=== PATIENT | female | born 2000 | race Caucasian/White ===

== ENCOUNTER 2024-09-11 17:33 | Emergency (ER) | payer BC, MEDICAID, SELFPAY ==
[2024-09-11 17:34] VITALS: BMI 33.2
[2024-09-11 17:53] VITALS: BP 130/86; PULSE 118; RESP 16; TEMP 37.4; O2SAT 98; BMI 33.2
--- NOTE | 2024-09-11 18:16 | PD.EDRME ---
Rapid Medical Screening Exam RME Arrival date/time: 09/11/24 17:33 23-year-old female past medical history of presents emergency department complaining of bilateral lower extremity and left upper arm red lesions that are warm to touch since Thursday. Chief Complaint: Skin/Abscess/Foreign Body Time Seen by Provider: 09/11/24 18:09 Vital signs: Vital Signs Temperature 99.3 F 09/11/24 17:53 Pulse Rate 118 H 09/11/24 17:53 Respiratory Rate 16 09/11/24 17:53 Blood Pressure 130/86 H 09/11/24 17:53 Pulse Oximetry (%) 98 09/11/24 17:53 Oxygen Delivery Method Room Air 09/11/24 17:53 Vital signs reviewed by provider: Yes
[2024-09-11 18:41] LABS: Basophils % (Auto) 0 % (0-2.5); Eosinophils # (Auto) 0.3 Thou/mm3 (0.0-0.5); Eosinophils % (Auto) 2 % (0-10); Hematocrit 40.8 % (36.0-46.0); Hemoglobin 13.9 g/dL (12.0-16.0); Immature Granulocytes % (Auto) 0 % (0-0); Immature Granulocytes Auto 0.03 Thou/mm3 (0.00-0.00); Lymphocytes # (Auto) 1.6 Thou/mm3 (1.0-4.8); Lymphocytes % (Auto) 14 % (10-50); Mean Corpuscular HGB Conc 34.1 g/dl (31.0-37.0); Mean Corpuscular Hemoglobin 27.2 pg (25.0-35.0); Mean Corpuscular Volume 80 fL (80-100); Monocytes # (Auto) 0.5 Thou/mm3 (0.0-0.8); Monocytes % (Auto) 4 % (0-12); Neutrophils % (Auto) 79 % (37-80); Nucleated Red Blood Cell % 0 /100 WBC (0); Platelet Count 425 Thou/mm3 (140-440); RDW Standard Deviation 34.5 fL (36.4-46.3); Red Blood Count 5.11 Miln/mm3 (4.00-5.20); White Blood Count 11.4 Thou/mm3 (3.6-11.0)
[2024-09-11 18:58] LABS: Alanine Aminotransferase 18 U/L (10-49); Albumin, Serum 5.1 gm/dL (3.5-5.0); Albumin/Globulin Ratio 1.8 (1.2-2.2); Alkaline Phosphatase 167 U/L (46-116); Anion Gap 9 (7-16); Aspartate Amino Transferase 15 U/L (0-34); BUN/Creatinine Ratio 12 Ratio (12-20); Bilirubin,Total 0.9 mg/dL (0.3-1.2); Blood Urea Nitrogen 7 mg/dL (9-23); Calcium 9.7 mg/dL (8.3-10.6); Calcium (Corrected) 9.7 mg/dL (8.5-10.1); Carbon Dioxide 23.5 mMol/L (20.0-31.0); Chloride 105 mMol/L (98-107); Creatinine (Component) 0.6 mg/dL (0.6-1.3); Estimated Creatinine Clearance 132.7 mL/min (>60); Globulin 2.8 gm/dL (2.3-3.5); Glucose 92 mg/dL (74-106); Osmolality,Calculated 271 (275-295); Potassium 3.9 mMol/L (3.4-5.1); Sodium 137 mMol/L (136-145); Total Protein 7.9 gm/dL (5.7-8.2); eGFR > 60 See Note
[2024-09-11 19:19] LABS: HCG,Qualitative Serum Negative
[2024-09-11 19:28] LABS: Collection Type, Urine Clean Catch
[2024-09-11 19:38] LABS: Bacteria,Urine Rare; Bilirubin,Urine Negative (Negative); Blood,Urine 1+ (Negative); Clarity,Urine Clear (Clear/Hazy); Color,Urine Lt-Yellow (Lt Yel-Yel); Culture Indicated,Urine Not Indicated; Glucose, Urine Negative (Negative); Ketones,Urine Negative (Negative); Leukocyte Esterase,Urine Positive (Negative); Nitrite,Urine Negative (Negative); PH,Urine 7.5 (5.0-7.0); Protein,Urine Negative (Neg - Trace); RBC,Urine 3 /hpf (0-3); Specific Gravity,Urine 1.018 (1.001-1.035); Squamous Epithelial Cell,Urine 3 /hpf (0-5); Urobilinogen,Urine Negative mg/dL (0.0-1.0); WBC,Urine 1 /hpf (0-5)
[2024-09-11] MEDS: ACETAMINOPHEN 500 MG TABLET 1000 MG PO (19:44)
--- NOTE | 2024-09-11 20:00 | EDNOTE_ITS ---
<Statement entered by Alexus Segura MD - 09/12/24 04:28> As co-signing physician, I was present and available for consult prn. I concur with the plan and care as documented by the midlevel provider. ED Skin Abcess FB-RME/HPI General Chief complaint: Skin/Abscess/Foreign Body Stated complaint: rash on bilateral legs, warm, no itching Time Seen by Provider: 09/11/24 18:09 Source: patient Arrival date/time: 09/11/24 17:33 23-year-old female past medical history of presents emergency department complaining of bilateral lower extremity and left upper arm red lesions that are warm to touch since Thursday. Patient denies any recent illness or recent travel. Patient denies any fever, chills, itching, vomiting, cough, or any other associated symptom. Mode of arrival: ambulatory Limitations: no limitations RME / HPI RME / HPI narrative: 09/11/24 17:33 23-year-old female past medical history of presents emergency department complaining of bilateral lower extremity and left upper arm red lesions that are warm to touch since Thursday. Related Data Home Medications ?Medication ?Instructions ?Recorded ?Confirmed furosemide 20 mg tablet 20 mg PO QDAY 11/04/23 11/04/23 ibuprofen 400 mg tablet 800 mg PO Q8HR PRN Pain 11/04/23 11/04/23 ondansetron 4 mg disintegrating 4 mg PO Q6H vomiting 11/04/23 11/04/23 tablet Previous Rx's ?Medication ?Instructions ?Recorded albuterol sulfate 90 mcg/actuation 2 puff inhalation QID PRN 08/21/18 aerosol inhaler (Ventolin HFA) shortness of breath or wheezing #8.5 grams labetalol 200 mg tablet 400 mg (2 x 200 mg) PO TID 30 days 10/24/23 #180 tabs ciprofloxacin HCl 500 mg tablet 500 mg PO Q12H #20 tabs 11/07/23 ciprofloxacin HCl 500 mg tablet 500 mg PO Q12H #30 tabs 11/07/23 metronidazole 500 mg tablet 500 mg PO Q12H #20 tabs 11/07/23 metronidazole 500 mg tablet 500 mg PO Q12H #30 tabs 11/07/23 acetaminophen 500 mg capsule 500 mg PO Q6H PRN pain #30 caps 09/11/24 doxycycline hyclate 100 mg capsule 100 mg PO BID 7 days #14 caps 09/11/24 Allergies Allergy/AdvReac Type Severity Reaction Status Date / Time amoxicillin Allergy Intermediate SWELLING Verified 11/03/23 17:48 erythromycin base Allergy Intermediate SWELLING Verified 11/03/23 17:48 red dye Allergy Intermediate SWELLING Verified 11/03/23 17:48 sulfamethoxazole Allergy Intermediate SWELLING Verified 11/03/23 17:48 trimethoprim Allergy Intermediate SWELLING Verified 11/03/23 17:48 MARGARINE Allergy Intermediate SWELLING Uncoded 11/03/23 17:48 Review of Systems Review of Systems Systems Reviewed: All systems reviewed, normal except as documented Constitutional Constitutional: Reports system reviewed and no additional complaints, except as documented, Denies body ache(s), Denies chills and Denies fever(s) Eyes Eyes: Reports system reviewed and no additional complaints, except as documented and Denies change in vision ENT Ears, Nose, Mouth, and Throat: Reports system reviewed and no additional complaints, except as documented, Denies disequilibrium, Denies dizziness, Denies sore throat and Denies vertigo Cardiovascular Cardiovascular: Reports system reviewed and no additional complaints, except as documented, Denies chest pain and Denies dyspnea Respiratory Respiratory: Reports system reviewed and no additional complaints, except as documented, Denies chest congestion, Denies cough and Denies dyspnea Gastrointestinal Gastrointestinal: Reports system reviewed and no additional complaints, except as documented, Denies abdominal pain, Denies nausea and Denies vomiting Musculoskeletal Musculoskeletal: Reports system reviewed and no additional complaints, except as documented, Denies abnormal gait and Denies arthralgias Integumentary/Breasts Skin/Breast: Reports system reviewed and no additional complaints, except as documented, Denies erythema, Reports rash and Denies wounds Neurologic Neurologic: Reports system reviewed and no additional complaints, except as documented, Denies abnormal gait, Denies disequilibrium, Denies dizziness and Denies vertigo Past Medical History Past Medical History NEUROLOGIC: Negative Neurological Disorders or Seizures CARDIAC: Positive Hypertension (while ); Negative Cardiac Disorders or Congestive Heart Failure RESPIRATORY: Positive Asthma (asthma-last used inhaler 6-8 months ago); Negative Chronic Obstructive Pulmonary Disease (COPD) GASTROINTESTINAL: Negative Gastrointestinal Disorders GENITOURINARY: Negative Genitourinary Disorders or Renal Disease REPRODUCTIVE: Positive Previous Pregnancies MUSCULOSKELETAL: Negative Musculoskeletal Disorders ENDOCRINE: Negative Endocrine Disorders, Diabetes Mellitus Type 1 or Diabetes Mellitus Type 2 HEMATOLOGIC: Negative Blood Disorders, Anemia or Sickle Cell Disease PSYCHO/SOCIAL: Positive Depression and Anxiety OTHER HISTORY: Positive Blood Transfusions; Negative Autoimmune Disease, Falls, Blood Transfusion Reaction, Anesthesia Reactions, MRSA, VRSA, Vancomycin-Resistant Enterococci or Cancer Family History FAMILY HISTORY: Positive Family Respiratory Disorders (GRANMOTHER); Negative Family Psychiatric Problems, Family Cardiac Disorders, Family Gastrointestinal Problems, Family Cancer, Family Surgery or Family Anesthesia Reaction Surgical History SURGICAL: Positive Section (october 22, 2023) Social History SMOKING STATUS: Former smoker ED Exam General Limitations: Present no limitations General appearance: Present alert and in no apparent distress Head Head exam: Present atraumatic Eye Eye exam: Present normal appearance, PERRL and EOMI ENT ENT exam: Present normal exam, normal oropharynx and mucous membranes moist Neck Neck exam: Present normal inspection, full ROM and trachea midline Chest Chest inspection: Present normal inspection and symmetric chest wall rise Respiratory Respiratory exam: Present normal lung sounds bilaterally Cardiovascular Cardiovascular exam: Present regular rate, normal rhythm and normal heart sounds Abdominal Exam Abdominal exam: Present soft and normal bowel sounds Extremities Exam Extremities exam: Present normal inspection and full ROM Back Exam Back exam: Present normal inspection and full ROM Neurological Exam Neurological exam: Present alert, oriented X3 and CN II-XII intact Psychiatric Psychiatric exam: Present normal affect and normal mood Skin Skin exam: Present warm, dry, intact and rash Expanded Skin Exam Type of lesion: Present bite/sting Distribution: Present generalized, LLE, RUE and RLE Body image: 2 1. Generalized small about the size of a quarter red and warm to touch with possible portal of entry from bug bite or sting in the middle. They have the appearance of mosquito bites. 2. Generalized small about the size of a quarter red and warm to touch with possible portal of entry from bug bite or sting in the middle. They have the appearance of mosquito bites. 3. Generalized small about the size of a quarter red and warm to touch with possible portal of entry from bug bite or sting in the middle. They have the appearance of mosquito bites. Course Quality Measures none Orders Category Date Time Status CBC Stat Lab 09/11/24 18:25 Completed CMP [Comprehensive Metabolic Panel] Stat Lab 09/11/24 18:25 Completed HCG,Qualitative Serum Stat Lab 09/11/24 18:25 Completed Urinalysis, C/S if Indicated Stat Lab 09/11/24 18:50 Completed Acetaminophen Tab [Tylenol ES Tab] Med 09/11/24 18:28 Discontinued 1,000 mg PO X1 ONE Vital Signs Vital signs: Vital Signs Temperature 99.3 F 09/11/24 17:53 Pulse Rate 118 H 09/11/24 17:53 Respiratory Rate 16 09/11/24 17:53 Blood Pressure 130/86 H 09/11/24 17:53 Pulse Oximetry (%) 98 09/11/24 17:53 Oxygen Delivery Method Room Air 09/11/24 17:53 98% room air within normal limits Skin / Abscess / Foreign Body MDM Narrative MDM Narrative:: 23-year-old female past medical history of presents emergency department complaining of bilateral lower extremity and left upper arm red lesions that are warm to touch since Thursday. Patient denies any recent illness or recent travel. Patient denies any fever, chills, itching, vomiting, cough, or any other associated symptom. Patient appears nontoxic and is hemodynamically stable. CBC unremarkable for any leukocytosis. CMP and urinalysis were also unremarkable. Patient likely has some infected mosquito or bug bites. Small red lesions approximately a quarter in size generalized to bilateral lower extremities and left upper arm. Will treat with antibiotics due to patient's several allergies to penicillins and sulfas patient will be discharged on doxycycline and instructed to have follow-up in a couple days for reevaluation of wounds. Instructed to return immediately to emergency department for any worsening signs of infection or as needed. Patient data External records reviewed:: [facility] previous records Clinical information provided by:: patient Social determinants that could affect healthcare access:: none Patient has the following chronic illnesses:: None How is presenting disease/condition affected by chronic disease/condition?: no chronic disease Evaluation data The following diagnostics were reviewed and interpreted by me:: lab results Lab and/or radiology exams considered but not ordered:: Ordered Interpretation Summary: Interpreted by me Medications / Prescriptions Medications or Prescriptions considered but not ordered:: Ordered Medication administrations:: Medication Administration History Discontinued Medications Acetaminophen (Acetaminophen 500 Mg Tablet) 1,000 mg PO X1 ONE Stop: 09/11/24 18:29 Last Admin: 09/11/24 19:44 Dose: 1,000 mg Documented By: EE Given Consultations Consultation(s) initiated? (list below): No Diagnosis Skin/Abscess Differential Diagnosis: abscess of skin or subcutaneous tissue, urticaria, herpes zoster, allergic reaction to drug, cellulitis, eczema, insect bites, impetigo and contact dermatitis Most likely diagnosis given after review of the tests above:: Cellulitis Admission Indicated Admission indicated?: not indicated Admission Request Was there a request for admission?: No Disposition Plan Disposition Plan: Discharge Discharge Attestation Discharge Attestation: The patient and all family members were given an opportunity to ask questions and understood the discharge instructions. Discharge instructions specifically effects, indications for sooner follow up or return to the emergency department, and the expected course of current diagnosis. Patient condition: Stable Discharge Plan Plan Patient Disposition: HOME (Self Care) Disposition Comment: Stable Prescriptions/Referrals Prescriptions/Med Rec: New doxycycline hyclate 100 mg capsule 100 mg PO BID 7 Days Qty: 14 0RF acetaminophen 500 mg capsule 500 mg PO Q6H PRN (Reason: pain) Qty: 30 0RF No Action albuterol sulfate [Ventolin HFA] 90 mcg/actuation HFA aerosol inhaler 2 puff INH QID PRN (Reason: shortness of breath or wheezing) Qty: 8.5 0RF labetalol 200 mg tablet 400 mg PO TID 30 Days Qty: 180 2RF ibuprofen 400 mg tablet 800 mg PO Q8HR PRN (Reason: Pain) Patient Comments: TAKE 2 TABLETS ORALLY EVERY 8 HOURS NEEDED FOR SEE COMMENTS FOR 10 DAYS furosemide 20 mg tablet 20 mg PO QDAY Patient Comments: TAKE 1 TABLET BY MOUTH EVERY DAY FOR 30 DAYS ondansetron 4 mg tablet,disintegrating 4 mg PO Q6H Patient Comments: DISSOLVE 1 TABLET UNDER THE TONGUE ORALLY EVERY 6 HOURS NEEDED FOR NAUSEA AND VOMITING FOR 5 DAYS ciprofloxacin HCl 500 mg tablet 500 mg PO Q12H Qty: 30 0RF metronidazole 500 mg tablet 500 mg PO Q12H Qty: 30 0RF ciprofloxacin HCl 500 mg tablet 500 mg PO Q12H Qty: 20 0RF metronidazole 500 mg tablet 500 mg PO Q12H Qty: 20 0RF Referrals: Mame Hubbard NP [Primary Care Provider] - In 1 week Problem List Clinical Impression: Cellulitis Patient/Caregiver Discharge Instructions Discharge Activity: activity as tolerated Education Materials: ED Cellulitis Additional Instructions: Drink plenty of fluids and take antibiotics as prescribed. Complete antibiotic course. Follow-up with primary care provider in 2 to 3 days for reevaluation. Return immediately to the emergency room for any worsening signs of infection or as needed. Print Language: Uzbek Stand Alone Forms: [facility] Award Info., Patient Portal Info Letter PA/RADIO TIME SALES SUPERVISOR Supervising Physician PA/[employer] TIME SALES SUPERVISOR Supervising Physician: Dr. Segura
== END 2024-09-11 20:15 | disposition home or self-care (01) ==
PROVIDERS: Emergency Provider Emergency Medicine; PCP Nurse Practitioner Family
DX: L03.116 Cellulitis of left lower limb (principal); L03.115 Cellulitis of right lower limb; L03.114 Cellulitis of left upper limb
CPT/HCPCS: 36415; 80053; 81001; 84703; 85025; 99283; A9270

== ENCOUNTER 2024-09-14 19:06 | Emergency (ER) | payer BC, MEDICAID, SELFPAY ==
[2024-09-14 19:55] VITALS: BP 123/83; PULSE 114; RESP 19; TEMP 36.9; O2SAT 99; BMI 33.2
--- NOTE | 2024-09-14 20:30 | XR_ITS ---
Examination: PA lateral chest 2 views TECHNIQUE: Upright PA and lateral chest 2 views Examination time: September 14, 20244 hours INDICATIONS: Rash in the lower leg with weakness and shortness of breath today. FINDINGS: Nodular consolidation in the right lower lobe Normal heart size Left lung. IMPRESSION: Pneumonia right lower lobe, recommend short-term follow-up chest imaging to document clearing and exclude underlying pulmonary mass right lower lobe
[2024-09-14] MEDS: predniSONE 20 MG TABLET 40 MG PO (20:31)
[2024-09-14] MEDS: DEXAMETHASONE SOD PHOS INJ 10 MG/ML VIAL PO (20:31)
[2024-09-14 21:04] LABS: Basophils % (Auto) 0 % (0-2.5); Eosinophils # (Auto) 0.3 Thou/mm3 (0.0-0.5); Eosinophils % (Auto) 3 % (0-10); Hematocrit 41.5 % (36.0-46.0); Immature Granulocytes % (Auto) 1 % (0-0); Immature Granulocytes Auto 0.05 Thou/mm3 (0.00-0.00); Lymphocytes # (Auto) 1.6 Thou/mm3 (1.0-4.8); Lymphocytes % (Auto) 16 % (10-50); Mean Corpuscular HGB Conc 33.7 g/dl (31.0-37.0); Mean Corpuscular Hemoglobin 27.2 pg (25.0-35.0); Mean Corpuscular Volume 81 fL (80-100); Monocytes # (Auto) 0.4 Thou/mm3 (0.0-0.8); Monocytes % (Auto) 4 % (0-12); Neutrophils # (Auto) 7.6 Thou/mm3 (1.8-7.7); Neutrophils % (Auto) 76 % (37-80); Nucleated Red Blood Cell % 0 /100 WBC (0); Platelet Count 425 Thou/mm3 (140-440); RDW Standard Deviation 34.9 fL (36.4-46.3); Red Blood Count 5.15 Miln/mm3 (4.00-5.20); White Blood Count 10.1 Thou/mm3 (3.6-11.0)
[2024-09-14 21:17] LABS: Partial Thromboplastin Time 30.1 Seconds (22.0-36.0); Prothrombin Time 11.3 Seconds (9.0-12.2)
[2024-09-14 21:26] LABS: C-Reactive Protein 6.7 mg/dL (0.0-0.9)
[2024-09-14 21:31] LABS: Thyroid Stimulating Hormone 0.72 uIU/mL (0.55-4.78)
--- NOTE | 2024-09-14 22:17 | PD.EDSKIN ---
ED Skin Abcess FB-RME/HPI General Chief complaint: General Adult/Misc Complain Stated complaint: rash legs, feet , elbows, sore neck , hands/feet Time Seen by Provider: 09/14/24 20:05 Arrival date/time: 09/14/24 19:06 23F with no significant PMH presents to ED with 1 week of painful, but non-itchy rash primarily on bilateral lower legs. Patient also has joint pain. Patient was here several days ago and given doxycycline for skin infection. Patient has a mild cough. Patient was seen in clinic with pending Valley Fever test. Limitations: no limitations Related Data Home Medications ?Medication ?Instructions ?Recorded ?Confirmed furosemide 20 mg tablet 20 mg PO QDAY 11/04/23 11/04/23 ibuprofen 400 mg tablet 800 mg PO Q8HR PRN Pain 11/04/23 11/04/23 ondansetron 4 mg disintegrating 4 mg PO Q6H vomiting 11/04/23 11/04/23 tablet Previous Rx's ?Medication ?Instructions ?Recorded albuterol sulfate 90 mcg/actuation 2 puff inhalation QID PRN 08/21/18 aerosol inhaler (Ventolin HFA) shortness of breath or wheezing #8.5 grams labetalol 200 mg tablet 400 mg (2 x 200 mg) PO TID 30 days 10/24/23 #180 tabs ciprofloxacin HCl 500 mg tablet 500 mg PO Q12H #20 tabs 11/07/23 ciprofloxacin HCl 500 mg tablet 500 mg PO Q12H #30 tabs 11/07/23 metronidazole 500 mg tablet 500 mg PO Q12H #20 tabs 11/07/23 metronidazole 500 mg tablet 500 mg PO Q12H #30 tabs 11/07/23 acetaminophen 500 mg capsule 500 mg PO Q6H PRN pain #30 caps 09/11/24 doxycycline hyclate 100 mg capsule 100 mg PO BID 7 days #14 caps 09/11/24 cefuroxime axetil 500 mg tablet 500 mg PO BID 7 days #14 tabs 09/14/24 Allergies Allergy/AdvReac Type Severity Reaction Status Date / Time amoxicillin Allergy Intermediate SWELLING Verified 09/14/24 19:08 erythromycin base Allergy Intermediate SWELLING Verified 09/14/24 19:08 red dye Allergy Intermediate SWELLING Verified 09/14/24 19:08 sulfamethoxazole Allergy Intermediate SWELLING Verified 09/14/24 19:08 trimethoprim Allergy Intermediate SWELLING Verified 09/14/24 19:08 MARGARINE Allergy Intermediate SWELLING Uncoded 09/14/24 19:08 Review of Systems Review of Systems Systems Reviewed: All systems reviewed, normal except as documented Constitutional Constitutional: Reports system reviewed and no additional complaints, except as documented, Denies fever(s) and Denies headache(s) ENT Ears, Nose, Mouth, and Throat: Denies disequilibrium and Denies headache(s) Cardiovascular Cardiovascular: Reports system reviewed and no additional complaints, except as documented, Denies chest pain and Denies dyspnea Respiratory Respiratory: Reports system reviewed and no additional complaints, except as documented, Reports as per HPI, Reports cough and Denies dyspnea Gastrointestinal Gastrointestinal: Reports system reviewed and no additional complaints, except as documented, Denies abdominal pain, Denies nausea and Denies vomiting Integumentary/Breasts Skin/Breast: Reports as per HPI and Reports lesions Neurologic Neurologic: Reports system reviewed and no additional complaints, except as documented, Denies confusion, Denies disequilibrium and Denies headache(s) Psychiatric Psychiatric: Denies confusion Past Medical History Past Medical History NEUROLOGIC: Negative Neurological Disorders or Seizures CARDIAC: Positive Hypertension (while ); Negative Cardiac Disorders or Congestive Heart Failure RESPIRATORY: Positive Asthma (asthma-last used inhaler 6-8 months ago); Negative Chronic Obstructive Pulmonary Disease (COPD) GASTROINTESTINAL: Negative Gastrointestinal Disorders GENITOURINARY: Negative Genitourinary Disorders or Renal Disease REPRODUCTIVE: Positive Previous Pregnancies MUSCULOSKELETAL: Negative Musculoskeletal Disorders ENDOCRINE: Negative Endocrine Disorders, Diabetes Mellitus Type 1 or Diabetes Mellitus Type 2 HEMATOLOGIC: Negative Blood Disorders, Anemia or Sickle Cell Disease PSYCHO/SOCIAL: Positive Depression and Anxiety OTHER HISTORY: Positive Blood Transfusions; Negative Autoimmune Disease, Falls, Blood Transfusion Reaction, Anesthesia Reactions, MRSA, VRSA, Vancomycin-Resistant Enterococci or Cancer Family History FAMILY HISTORY: Positive Family Respiratory Disorders (GRANMOTHER); Negative Family Psychiatric Problems, Family Cardiac Disorders, Family Gastrointestinal Problems, Family Cancer, Family Surgery or Family Anesthesia Reaction Surgical History SURGICAL: Positive Section (october 22, 2023) Social History SMOKING STATUS: Current every day smoker ED Exam General Limitations: Present no limitations General appearance: Present alert and in no apparent distress Head Head exam: Present atraumatic Eye Eye exam: Present normal appearance, PERRL and EOMI ENT ENT exam: Present normal exam, normal oropharynx and mucous membranes moist Neck Neck exam: Present normal inspection, full ROM and trachea midline Chest Chest inspection: Present normal inspection and symmetric chest wall rise Respiratory Respiratory exam: Present normal lung sounds bilaterally Cardiovascular Cardiovascular exam: Present regular rate, normal rhythm and normal heart sounds Abdominal Exam Abdominal exam: Present soft and normal bowel sounds Extremities Exam Extremities exam: Present normal inspection and full ROM Back Exam Back exam: Present normal inspection and full ROM Neurological Exam Neurological exam: Present alert, oriented X3 and CN II-XII intact Psychiatric Psychiatric exam: Present normal affect and normal mood Skin Skin exam: Present warm, dry, intact, normal color and rash Course Quality Measures none Orders Category Date Time Status XR chest 2V Stat Exams 09/14/24 20:30 Completed CBC Stat Lab 09/14/24 20:40 Completed CRP [C-Reactive Protein] Stat Lab 09/14/24 20:40 Completed ESR [Sed Rate (ESR)] Stat Lab 09/14/24 20:40 Completed INR [Prothrombin Time with INR] Stat Lab 09/14/24 20:40 Completed PTT [Partial Thromboplastin Time] Stat Lab 09/14/24 20:40 Completed Thyroid Stimulating Hormone Stat Lab 09/14/24 20:40 Completed Dexamethasone Inj [Decadron Inj] Med 09/14/24 20:06 Discontinued 10 mg PO X1 ONE predniSONE Med 09/14/24 20:06 Discontinued 40 mg PO X1 ONE Vital Signs Vital signs: Vital Signs Temperature 98.5 F 09/14/24 19:55 Pulse Rate 114 H 09/14/24 19:55 Respiratory Rate 19 09/14/24 19:55 Blood Pressure 123/83 09/14/24 19:55 Pulse Oximetry (%) 99 09/14/24 19:55 O2 at 99% on RA and WNLs Skin / Abscess / Foreign Body MDM Narrative MDM Narrative:: 23F with no significant PMH presents to ED with 1 week of painful, but non-itchy rash primarily on bilateral lower legs. Patient also has joint pain. Patient was here several days ago and given doxycycline for skin infection. Patient has a mild cough. Patient was seen in clinic with pending Valley Fever test. Physical exam reveals widespread blanching purpura in bilateral lower legs. Clear ENT and lungs. Patient is afebrile, calm, and alert. CXR reveals R lower lobe PNA vs parenchymal disease. No leukocytosis. Normal platelet. Coags normal. ESR/CRP elevated. TSH normal. Significant response to steroids with less swelling and less joint pain. Likely some kind of vasculitis possibly triggered by [place] Fever vs bacterial PNA vs autoimmune condition. Will add Cefuroxime (patient has had Ancef and Rocephin before w/o issue) to take with doxy pending Valley Fever test result from PCP. Will hold off on additional steroids given pending Valley Fever test (patient has follow-up with appt in the next few days). Dexa is long-acting steroid and should continue to help vasculitis. Patient data External records reviewed:: [facility] previous records Clinical information provided by:: patient Social determinants that could affect healthcare access:: none Patient has the following chronic illnesses:: none How is presenting disease/condition affected by chronic disease/condition?: no chronic disease Evaluation data The following diagnostics were reviewed and interpreted by me:: lab results and radiology exam(s) Lab and/or radiology exams considered but not ordered:: ordered Interpretation Summary: above Medications / Prescriptions Medications or Prescriptions considered but not ordered:: ordered Medication administrations:: Medication Administration History Discontinued Medications Dexamethasone Sodium Phosphate (Dexamethasone Sod Phos Inj 10 Mg/Ml Vial) 10 mg PO X1 ONE Stop: 09/14/24 20:07 Last Admin: 09/14/24 20:31 Dose: 10 mg Documented By: AYUSH Prednisone (Prednisone 20 Mg Tablet) 40 mg PO X1 ONE Stop: 09/14/24 20:07 Last Admin: 09/14/24 20:31 Dose: 40 mg Documented By: AYUSH above Consultations Consultation(s) initiated? (list below): No Diagnosis Skin/Abscess Differential Diagnosis: abscess of skin or subcutaneous tissue, viral exanthem, dermatophytosis, urticaria, herpes zoster, allergic reaction to drug, cellulitis, eczema, insect bites, impetigo, contact dermatitis and other (Valley Fever, PNA, vasculitis, CAP) Most likely diagnosis given after review of the tests above:: vasculitis and CAP Admission Indicated Admission indicated?: not indicated Admission Request Was there a request for admission?: No Disposition Plan Disposition Plan: Discharge Discharge Attestation Discharge Attestation: The patient and all family members were given an opportunity to ask questions and understood the discharge instructions. Discharge instructions specifically effects, indications for sooner follow up or return to the emergency department, and the expected course of current diagnosis. Patient condition: Stable Discharge Plan Plan Patient Disposition: HOME (Self Care) Disposition Comment: Stable Prescriptions/Referrals Prescriptions/Med Rec: New cefuroxime axetil 500 mg tablet 500 mg PO BID 7 Days Qty: 14 0RF No Action albuterol sulfate [Ventolin HFA] 90 mcg/actuation HFA aerosol inhaler 2 puff INH QID PRN (Reason: shortness of breath or wheezing) Qty: 8.5 0RF doxycycline hyclate 100 mg capsule 100 mg PO BID 7 Days Qty: 14 0RF acetaminophen 500 mg capsule 500 mg PO Q6H PRN (Reason: pain) Qty: 30 0RF labetalol 200 mg tablet 400 mg PO TID 30 Days Qty: 180 2RF ibuprofen 400 mg tablet 800 mg PO Q8HR PRN (Reason: Pain) Patient Comments: TAKE 2 TABLETS ORALLY EVERY 8 HOURS NEEDED FOR SEE COMMENTS FOR 10 DAYS furosemide 20 mg tablet 20 mg PO QDAY Patient Comments: TAKE 1 TABLET BY MOUTH EVERY DAY FOR 30 DAYS ondansetron 4 mg tablet,disintegrating 4 mg PO Q6H Patient Comments: DISSOLVE 1 TABLET UNDER THE TONGUE ORALLY EVERY 6 HOURS NEEDED FOR NAUSEA AND VOMITING FOR 5 DAYS ciprofloxacin HCl 500 mg tablet 500 mg PO Q12H Qty: 30 0RF metronidazole 500 mg tablet 500 mg PO Q12H Qty: 30 0RF ciprofloxacin HCl 500 mg tablet 500 mg PO Q12H Qty: 20 0RF metronidazole 500 mg tablet 500 mg PO Q12H Qty: 20 0RF Referrals: Jennifer Johnson FNP [Primary Care Provider] - In 1 week Problem List Clinical Impression: Vasculitis, CAP (community acquired pneumonia) Patient/Caregiver Discharge Instructions Education Materials: ED Pneumonia (Adult) Additional Instructions: Please follow-up with PCP within 24-48 hours and return immediately if symptoms worsen. Finish doxycyline and cefuroxime unless Valley Fever test is positive. Follow-up with PCP soon for additional steroids. Print Language: French Stand Alone Forms: Patient Portal Info Letter JOSE/NYLON WINDER Supervising Physician JOSE/NYLON WINDER Supervising Physician: Dr. Alexander
[2024-09-14 22:20] LABS: Sed Rate (ESR) 32 mm/hr (0-20)
[2024-09-14 23:36] VITALS: BP 122/87; PULSE 100; RESP 19; TEMP 36.8; O2SAT 97
== END 2024-09-14 23:41 | disposition home or self-care (01) ==
PROVIDERS: Physician Assistant; Emergency Provider Emergency Medicine; PCP Nurse Practitioner Family
DX: I77.6 Arteritis, unspecified (principal); J18.9 Pneumonia, unspecified organism; F17.290 Nicotine dependence, other tobacco product, uncomplicated
CPT/HCPCS: 36415; 71046; 84443; 85025; 85610; 85652; 85730; 86140; 99283; J1100; J7512

== ENCOUNTER → 2024-10-24 | Outpatient (CLI) | payer BC, MEDICAID, SELFPAY ==
[2024-10-24 10:20] LABS: Basophils % (Auto) 0 % (0-2.5); Eosinophils # (Auto) 0.2 Thou/mm3 (0.0-0.5); Eosinophils % (Auto) 4 % (0-10); Hematocrit 38.5 % (36.0-46.0); Hemoglobin 12.9 g/dL (12.0-16.0); Immature Granulocytes % (Auto) 0 % (0-0); Immature Granulocytes Auto 0.01 Thou/mm3 (0.00-0.00); Lymphocytes # (Auto) 1.5 Thou/mm3 (1.0-4.8); Lymphocytes % (Auto) 28 % (10-50); Mean Corpuscular HGB Conc 33.5 g/dl (31.0-37.0); Mean Corpuscular Volume 81 fL (80-100); Monocytes # (Auto) 0.3 Thou/mm3 (0.0-0.8); Monocytes % (Auto) 5 % (0-12); Neutrophils # (Auto) 3.4 Thou/mm3 (1.8-7.7); Neutrophils % (Auto) 63 % (37-80); Nucleated Red Blood Cell % 0 /100 WBC (0); Platelet Count 355 Thou/mm3 (140-440); RDW Standard Deviation 36.5 fL (36.4-46.3); Red Blood Count 4.78 Miln/mm3 (4.00-5.20); White Blood Count 5.3 Thou/mm3 (3.6-11.0)
[2024-10-24 10:49] LABS: Alanine Aminotransferase 18 U/L (10-49); Albumin, Serum 4.4 gm/dL (3.5-5.0); Albumin/Globulin Ratio 1.8 (1.2-2.2); Alkaline Phosphatase 149 U/L (46-116); Anion Gap 8 (7-16); Aspartate Amino Transferase 19 U/L (0-34); BUN/Creatinine Ratio 13 Ratio (12-20); Bilirubin,Total 0.8 mg/dL (0.3-1.2); Blood Urea Nitrogen 8 mg/dL (9-23); C-Reactive Protein 0.7 mg/dL (0.0-0.9); Calcium 9.5 mg/dL (8.3-10.6); Calcium (Corrected) 9.5 mg/dL (8.5-10.1); Carbon Dioxide 25.1 mMol/L (20.0-31.0); Chloride 109 mMol/L (98-107); Creatinine (Component) 0.6 mg/dL (0.6-1.3); Globulin 2.4 gm/dL (2.3-3.5); Glucose 97 mg/dL (74-106); Osmolality,Calculated 281 (275-295); Potassium 4.1 mMol/L (3.4-5.1); Sodium 142 mMol/L (136-145); Total Protein 6.8 gm/dL (5.7-8.2); eGFR > 60 See Note
[2024-11-02 06:50] LABS: ANA Screen, IFA NEGATIVE (NEGATIVE); CCP Antibody (IgG)* <16 Units; DNA (ds) Antibody* <1 IU/mL
== END | disposition home or self-care (01) ==
PROVIDERS: PCP Internal Medicine; Referring Provider Internal Medicine; Visit Provider Internal Medicine
DX: B38.3 Cutaneous coccidioidomycosis (principal); R21 Rash and other nonspecific skin eruption
CPT/HCPCS: 36415; 80053; 85025; 86038; 86140; 86200; 86225

== ENCOUNTER → 2025-02-20 | Outpatient (CLI) | payer BC, SELFPAY ==
[2025-02-20 17:04] LABS: Coccid Serology, CF (UCD)* See Sep Rpt
[2025-02-20 17:37] LABS: Basophils # (Auto) 0.0 Thou/mm3 (0.0-0.2); Basophils % (Auto) 0 % (0-2.5); Eosinophils # (Auto) 0.4 Thou/mm3 (0.0-0.5); Eosinophils % (Auto) 5 % (0-10); Hematocrit 37.7 % (36.0-46.0); Hemoglobin 13.1 g/dL (12.0-16.0); Immature Granulocytes Auto 0.03 Thou/mm3 (0.00-0.00); Lymphocytes # (Auto) 1.9 Thou/mm3 (1.0-4.8); Lymphocytes % (Auto) 23 % (10-50); Mean Corpuscular HGB Conc 34.7 g/dl (31.0-37.0); Mean Corpuscular Hemoglobin 27.9 pg (25.0-35.0); Mean Corpuscular Volume 80 fL (80-100); Monocytes # (Auto) 0.3 Thou/mm3 (0.0-0.8); Monocytes % (Auto) 4 % (0-12); Neutrophils # (Auto) 5.7 Thou/mm3 (1.8-7.7); Neutrophils % (Auto) 69 % (37-80); Nucleated Red Blood Cell # 0.00 Thou/mm3 (0.00-0.00); Nucleated Red Blood Cell % 0 /100 WBC (0); Platelet Count 355 Thou/mm3 (140-440); RDW Standard Deviation 35.3 fL (36.4-46.3); Red Blood Count 4.69 Miln/mm3 (4.00-5.20); White Blood Count 8.4 Thou/mm3 (3.6-11.0)
[2025-02-20 17:52] LABS: Alanine Aminotransferase 26 U/L (10-49); Albumin, Serum 4.4 gm/dL (3.5-5.0); Albumin/Globulin Ratio 1.8 (1.2-2.2); Alkaline Phosphatase 143 U/L (46-116); Anion Gap 9 (7-16); Aspartate Amino Transferase 21 U/L (0-34); BUN/Creatinine Ratio 12 Ratio (12-20); Bilirubin,Total 0.5 mg/dL (0.3-1.2); Blood Urea Nitrogen 7 mg/dL (9-23); Calcium 9.3 mg/dL (8.3-10.6); Calcium (Corrected) 9.3 mg/dL (8.5-10.1); Carbon Dioxide 26.4 mMol/L (20.0-31.0); Chloride 107 mMol/L (98-107); Creatinine (Component) 0.6 mg/dL (0.6-1.3); Globulin 2.5 gm/dL (2.3-3.5); Glucose 92 mg/dL (74-106); Osmolality,Calculated 281 (275-295); Potassium 4.3 mMol/L (3.4-5.1); Sodium 142 mMol/L (136-145); Total Protein 6.9 gm/dL (5.7-8.2); eGFR > 60 See Note
== END | disposition home or self-care (01) ==
LOC: COPL 16:50
PROVIDERS: PCP Internal Medicine; Referring Provider Internal Medicine; Visit Provider Internal Medicine
DX: B38.3 Cutaneous coccidioidomycosis (principal); R21 Rash and other nonspecific skin eruption; I10 Essential (primary) hypertension; J45.909 Unspecified asthma, uncomplicated
CPT/HCPCS: 36415; 80053; 85025; 86171

== ENCOUNTER → 2025-02-27 | Outpatient (CLI) | payer BC, SELFPAY ==
--- NOTE | 2025-02-27 10:52 | XR_ITS ---
Examination: PA lateral chest 2 views TECHNIQUE: Upright PA lateral chest 2 views Date and time: February 27, 2025 1056 hours Comparison September 14, 2024 INDICATIONS: Diagnosis coccidiomycosis and pneumonia in the right lower lobe on chest film September 14, 2024 FINDINGS: Normal heart size No current pneumonia Mild osteopenia IMPRESSION: No current pneumonia
== END | disposition home or self-care (01) ==
PROVIDERS: PCP Internal Medicine; Referring Provider Internal Medicine; Visit Provider Internal Medicine
DX: B38.0 Acute pulmonary coccidioidomycosis (principal)
CPT/HCPCS: 71046